=== PATIENT | female | born 1990 | race Caucasian/White ===

== ENCOUNTER 2021-05-09 20:44 | Emergency (ER) | payer OTHER, MEDICAID, SELFPAY ==
[2021-05-09 20:49] VITALS: BP 102/62; PULSE 67; RESP 18; TEMP 36.8; O2SAT 100
[2021-05-09] MEDS: SODIUM CHLORIDE 0.9% 1,000 ML 1000 ML IV (22:47)
[2021-05-09 23:17] VITALS: BP 99/54; PULSE 60; RESP 18; O2SAT 99
[2021-05-09 23:30] VITALS: PULSE 48; O2SAT 98
[2021-05-09 23:40] VITALS: PULSE 69; O2SAT 98
[2021-05-09 23:41] VITALS: BP 100/58
[2021-05-10] MEDS: SODIUM CHLORIDE 0.9% 1,000 ML 1000 ML IV (00:27)
--- NOTE | 2021-05-10 00:27 | ED.NAVMDI ---
HPI - Nausea/Vomiting/Diarrhea General Chief complaint: Nausea/Vomiting/Diarrhea Stated complaint: vomiting for 4 days Time Seen by Provider: 05/10/21 00:26 Source: patient Mode of arrival: Ambulatory History of Present Illness HPI Narrative: 30-year-old woman with history of Crohn's disease new to the area presents with 4 days of nausea and vomiting. She does not describe fevers, cough, chills or diarrhea. There is no blood in the vomitus. She does have Zofran and has not found that it is helpful. She is not currently . She is having trouble focusing as well as standing up because she gets so dizzy and orthostatic after 4 days of vomiting and having little oral intake. She reports epigastric abdominal pain secondary to the vomiting, no chest pain palpitations or headaches. Related Data Home Medications Medication Instructions Recorded Confirmed ondansetron 4 mg disintegrating 4 mg PO Q8H 05/09/21 05/09/21 tablet Previous Rx's Medication Instructions Recorded metoclopramide HCl 10 mg tablet 10 mg PO Q6H PRN #30 tab 05/10/21 Allergies Allergy/AdvReac Type Severity Reaction Status Date / Time iodine Allergy Severe Hives Verified 05/09/21 19:37 shellfish derived Allergy Severe anaphylaxis, Verified 05/09/21 19:37 swells up bee venom protein (honey bee) AdvReac Intermediate swelling Verified 05/09/21 19:37 at site Review of Systems Review of Systems Narrative: Remainder of complete review of systems is otherwise unremarkable except for that included in the HPI. Patient History Medical History (Updated 05/10/21 @ 01:43 by Madie Palomo MD) Crohn's disease Exam Narrative Exam Narrative: General: Healthy appearing, in mild distress. Able to give a complete and coherent history. Well-nourished well-developed HEENT: Moist mucous membranes, normal sclera with reactive pupils, Neck: , supple Respiratory: Lungs are clear to auscultation, no wheezing no rales no rhonchi. Full and symmetrical air movement Cardiac: Regular rate and rhythm no murmurs no bruits Abdomen: Soft, mild epigastric tenderness without rebound or guarding, good bowel tones, no flank pain Skin: Warm and dry, no rashes Neurologic: Grossly neurologically intact with no obvious asymmetries or abnormalities Extremities: No trauma, well perfused Psych: Cooperative, appropriate insight and affect Initial Vital Signs Initial Vital Signs: Vital Signs Temperature 98.3 F 05/09/21 20:49 Pulse Rate 67 05/09/21 20:49 Respiratory Rate 18 05/09/21 20:49 Blood Pressure 102/62 05/09/21 20:49 Pulse Oximetry 100 05/09/21 20:49 Course Orders Ordered: ED Orders 05/10/21 00:05 Complete Blood Count AUTO DIFF Stat Comprehensive Metabolic Panel Stat Lipase Stat Magnesium Stat Discontinued Medications Sodium Chloride (Normal Saline 0.9%) 1,000 mls @ 1,000 mls/hr IV BOLUS ONE Stop: 05/09/21 23:45 Last Infusion: 05/10/21 01:17 Dose: 0 mls/hr Documented by: Admin: 05/09/21 22:47 Dose: 1,000 mls/hr Documented by: ANGELA Sodium Chloride (Normal Saline 0.9%) 1,000 mls @ 1,000 mls/hr IV BOLUS ONE Stop: 05/10/21 01:25 Last Admin: 05/10/21 00:27 Dose: 1,000 mls/hr Documented by: ANGELA Metoclopramide HCl (Metoclopramide 10 Mg/2 Ml Inj) 10 mg IV NOW ONE Stop: 05/10/21 00:32 Last Admin: 05/10/21 00:41 Dose: 10 mg Documented by: ANGELA Vital Signs Vital signs: Vital Signs - 8 hr 05/09/21 20:49 05/09/21 23:17 05/09/21 23:30 Temperature 98.3 F Pulse Rate 67 60 48 L Respiratory Rate 18 18 Blood Pressure 102/62 99/54 L Pulse Oximetry 100 99 98 05/09/21 23:40 05/09/21 23:41 Temperature Pulse Rate 69 Respiratory Rate Blood Pressure 100/58 L Pulse Oximetry 98 MDM - Nausea/Vomiting/Diarrhea Lab Data Result diagrams: 05/09/21 22:35 05/09/21 22:35 Labs: Lab Results 05/09/21 05/09/21 Range/Units 22:35 22:35 WBC 8.0 (4.5-11.0) X10^3/uL RBC 4.48 (4.0-5.2) X10^6/uL Hgb 14.0 (12.0-16.0) g/dL Hct 41.1 (36-46) % MCV 91.8 (80-100) fL MCH 31.2 (26-34) PG MCHC 34.0 (30-36) % RDW 13.3 (11.6-14.8) % Plt Count 186 (150-400) X10^3/uL Neut % (Auto) 44.7 L (50-75) % Lymph % (Auto) 46.9 H (25-40) % [place] % (Auto) 5.3 (3-14) % Eos % (Auto) 2.6 (2-4) % Baso % (Auto) 0.5 (0-2) % Neut # (Auto) 3600 (6538-8681) /uL Lymph # (Auto) 3800 (4409-5157) /uL [place] # (Auto) 400 (0-900) /uL Eos # (Auto) 200 (0-450) /uL Baso # (Auto) 0 (0-100) /uL Sodium 141 (137-145) mmol/L Potassium 4.0 (3.4-5.1) mmol/L Chloride 104 (98-107) mmol/L Carbon Dioxide 29 (22-32) mmol/L BUN 12 (7-17) mg/dL Creatinine 0.70 (0.52-1.04) mg/dL Estimated GFR > 60.0 (>60) mL/min BUN/Creatinine Ratio 17.1 (6-22) Glucose 87 (70-100) mg/dL Calcium 9.7 (8.4-10.2) mg/dL Magnesium 2.0 (1.6-2.3) mg/dL Total Bilirubin 1.1 (0.2-1.3) mg/dL AST 29 (14-36) IU/L ALT 18 (<35) IU/L Alkaline Phosphatase 46 (38-126) U/L Total Protein 7.4 (6.3-8.2) g/dL Albumin 4.8 (3.5-5.0) g/dL Globulin 2.6 (1.7-4.1) g/dL Albumin/Globulin Ratio 1.8 (1.0-2.8) Lipase 62 (23-300) U/L Point of Care Testing Test Results Negative Urine Dip Bedside Urine Glucose Negative Bedside Urine Bilirubin - Negative Bedside Urine Ketone - Negative Urine Specific [place] 1.025 Bedside Urine Occult Blood - Negative Bedside Urine pH 6 Bedside Urine Protein - Negative Bedside Urine Urobilinogen - Negative Bedside Urine Nitrite - Negative Bedside Urine Leukocytes - Negative Esterase MDM Narrative Medical decision making narrative: 30-year-old woman with history of Crohn's disease with vomiting persisting now for 4 days. She does have ondansetron available to her at home but has not been as effective. In the emergency department labs are reassuring as is exam. No acute abdomen or obvious infection. She is given a total of 2 L of fluid. Initial the Zofran was not effective bed adding Reglan was. She will be given a prescription for Reglan to use at home as needed and discharged home with instructions to return if symptoms are not improving. Discharge Plan Departure Patient Disposition: Home Clinical Impression: Vomiting Qualifiers: Vomiting type: unspecified Vomiting Intractability: non-intractable Nausea presence: with nausea Qualified Code(s): R11.2 - Nausea with vomiting, unspecified Instructions: DI for Vomiting -- Adult Activity Restrictions/Additional Instructions: I am glad you are feeling better Your lab work was very reassuring. There is no evidence of infection, kidney problems or electrolyte abnormalities. The Reglan/metoclopramide that we used in the emergency department seem to be very effective for controlling her nausea. I have given you a prescription for this to use at home. You can use the Reglan and the ondansetron simultaneously or mix and match as best fits your needs. If you have worsening symptoms, please feel free to return to the ER Prescriptions: New metoclopramide HCl 10 mg tablet 10 mg PO Q6H PRN (Reason: nausea and vomiting) Qty: 30 RF: 0 No Action ondansetron 4 mg tablet,disintegrating 4 mg PO Q8H RF: 0
[2021-05-10] MEDS: METOCLOPRAMIDE 10 MG/2 ML INJ IV (00:41)
[2021-05-10 00:42] LABS: Add Manual Diff / Slide Review NO; Basophils Absolute Auto 0 /uL (0-100); Basophils Percent Auto 0.5 % (0-2); Eosinophils Absolute Auto 200 /uL (0-450); Eosinophils Percent Auto 2.6 % (2-4); Hematocrit 41.1 % (36-46); Lymphocytes Absolute Auto 3800 /uL (1100-4500); Lymphocytes Percent Auto 46.9 % (25-40); Mean Corpuscular Hemoglobin 31.2 PG (26-34); Mean Corpuscular Volume 91.8 fL (80-100); Monocytes Absolute Auto 400 /uL (0-900); Monocytes Percent Auto 5.3 % (3-14); Neutrophils Absolute Auto 3600 /uL (1500-7000); Neutrophils Percent Auto 44.7 % (50-75); Platelet Count 186 X10^3/uL (150-400); Red Blood Cell Count 4.48 X10^6/uL (4.0-5.2); Red Cell Distribution Width 13.3 % (11.6-14.8)
[2021-05-10 00:52] LABS: Alanine Aminotransferase 18 IU/L (<35); Albumin 4.8 g/dL (3.5-5.0); Albumin Globulin Ratio 1.8 (1.0-2.8); Alkaline Phosphatase 46 U/L (38-126); Aspartate Aminotransferase 29 IU/L (14-36); BUN Creatinine Ratio 17.1 (6-22); Bilirubin Total 1.1 mg/dL (0.2-1.3); Blood Urea Nitrogen 12 mg/dL (7-17); Calcium 9.7 mg/dL (8.4-10.2); Carbon Dioxide 29 mmol/L (22-32); Chloride 104 mmol/L (98-107); Estimated Glomerular Filt Rate > 60.0 mL/min (>60); Globulin 2.6 g/dL (1.7-4.1); Glucose 87 mg/dL (70-100); HEMOLYSIS 18 (0-50); Lipase 62 U/L (23-300); Sodium 141 mmol/L (137-145); Total Protein 7.4 g/dL (6.3-8.2)
[2021-05-10 01:55] VITALS: BP 108/65; PULSE 76; RESP 18; O2SAT 99
== END 2021-05-10 01:57 | disposition home or self-care (01) ==
PROVIDERS: Emergency Provider Emergency Medicine
DX: R11.2 Nausea with vomiting, unspecified (principal); R10.13 Epigastric pain
CPT/HCPCS: 80053; 81003; 81025; 83690; 83735; 85025; 87635; 96361; 96374; 99283; 99284; J2765

== ENCOUNTER → 2021-08-22 12:06 | Outpatient (CLI) | payer OTHER, MEDICAID, SELFPAY ==
[2021-08-22 14:05] LABS: COVID19 -Nasal RAPID Negative (Negative)
== END ==
PROVIDERS: Referring Provider Physician Assistant; Visit Provider Physician Assistant
DX: Z20.822 Contact with and (suspected) exposure to COVID-19 (principal); J02.9 Acute pharyngitis, unspecified
CPT/HCPCS: 87070; 87635; 87880

== ENCOUNTER 2021-10-20 17:11 | Emergency (ER) | payer OTHER, SELFPAY ==
--- NOTE | 2021-10-20 17:16 | DI.RAD.S_ITS ---
PROCEDURE: XR ANKLE LT MIN 3V INDICATIONS: fall, pain TECHNIQUE: 3 views of the ankle were acquired. COMPARISON: None. FINDINGS: Bones: No fractures or dislocations. Ankle mortise is normally aligned. No suspicious bony lesions. Soft tissues: No tibiotalar joint effusion. Achilles tendon appears normal. IMPRESSION: Unremarkable left ankle radiographs Approved by: Zhang Sanchez M.D. on 10/20/2021 at 17:09
--- NOTE | 2021-10-20 17:16 | DI.RAD.S_ITS ---
PROCEDURE: XR SACRUM COCCYX MIN 2V INDICATIONS: fall, pain TECHNIQUE: 3 views of the sacrum and coccyx acquired. COMPARISON: None. FINDINGS: Bones: No fractures or dislocations. No suspicious bony lesions. Soft tissues: Visualized bowel gas pattern is normal. No suspicious soft tissue densities. Midline intrauterine device noted. IMPRESSION: No evidence of fracture. Intrauterine device Approved by: Zhang Sanchez M.D. on 10/20/2021 at 17:08
[2021-10-20 17:21] VITALS: BP 114/62; PULSE 82; RESP 16; TEMP 37; O2SAT 97; BMI 25.0
[2021-10-20] MEDS: ACETAMINOPHEN 325 MG TABLET 975 MG PO (17:45)
[2021-10-20] MEDS: KETOROLAC 30 MG/ML VIAL IM (17:56)
--- NOTE | 2021-10-20 18:24 | ED_ITS ---
HPI - Fall General Chief Complaint: Fall Stated Complaint: fell, can't walk Time Seen by Provider: 10/20/21 18:03 History of Present Illness HPI Narrative: 31-year-old female Nonsmoker with noncontributory medical history presents with a friend and a chief complaint of a fall at work with injury to low back and left ankl nor loss of control of bowel or bladder She was in her normal state of health and denies any prodromal symptoms. She states that she probably stepped on some white substance on the floor then slipped and fell, landing on her tailbone and also rolling her ankle. She has severe pain when she attempts to ambulate and improvement with rest. She denies any head, neck or back trouble. She denies chest pain or shortness of breath. She has no lower extremity weakness, numbness, tingling Related Data Previous Rx's Medication Instructions Recorded hydrocortisone 1 %-pramoxine 1 % 1 applic [place] QID #10 g 08/06/21 rectal foam (Proctofoam HC) Allergies Allergy/AdvReac Type Severity Reaction Status Date / Time iodine Allergy Severe Hives Verified 08/05/21 14:47 shellfish derived Allergy Severe anaphylaxis, Verified 08/05/21 14:47 swells up bee venom protein (honey bee) AdvReac Intermediate swelling Verified 08/05/21 14:47 at site Review of Systems Review of Systems Narrative: GENERAL: Denies chills, fatigue, malaise, fever, sweats. HEENT: Denies sinus pain, ear pain, sore throat, difficulty swallowing, dizziness. RESPIRATORY: Denies dyspnea, cough, wheezing, hemoptysis, sputum. CARDIOVASCULAR: Denies chest pain, palpitations, orthopnea, edema, GASTROINTESTINAL: Denies nausea, vomiting, abdominal pain, diarrhea, constipation, melena. : Denies dysuria, frequency, incontinence, hematuria, urinary retention. MUSCULOSKELETAL: See HPI SKIN: Denies rash, skin lesions, or other NEUROLOGIC: Denies weakness, headache, numbness, change in speech, confusion, seizures, incoordination. PSYCHIATRIC: No concerning psychosocial issues. 12 point review of systems is negative except for those stated above Patient History Medical History Crohn's disease Social History Smoking Status: Never smoker Smoking Status: Never smoker Exam Narrative Exam Narrative: GENERAL: [31] year old patient appears stated age. Well-developed patient, in mild distress. HEAD: Atraumatic. Normocephalic. EYES: Pupils equal round and reactive. Extraocular motions intact. No scleral icterus. No injection or drainage. ENT: Nose without bleeding, purulent drainage. Throat without erythema, t onsillar hypertrophy or exudate. Airway patent. NECK: Trachea midline. Non tender CARDIOVASCULAR: Regular rate and rhythm without murmurs, gallops, or rubs. RESPIRATORY: Clear to auscultation. Breath sounds equal bilaterally. No wheezes, rales, or rhonchi. GASTROINTESTINAL: Abdomen soft, non-tender, nondistended. EXTREMITIES: No edema or joint tenderness. BACK: Nontender without deformity or crepitance. No flank tenderness. NEURO: AOx3. SKIN: No rash or erythema of visible areas Initial Vital Signs Initial Vital Signs: Vital Signs Temperature 98.6 F 10/20/21 17:21 Pulse Rate 82 10/20/21 17:21 Respiratory Rate 16 10/20/21 17:21 Blood Pressure 114/62 10/20/21 17:21 Pulse Oximetry 97 10/20/21 17:21 Course Orders Ordered: ED Orders 10/20/21 17:16 XR ankle LT min 3V Stat XR sacrum coccyx min 2V Stat Discontinued Medications Acetaminophen (Acetaminophen 325 Mg Tablet) 975 mg PO NOW ONE Stop: 10/20/21 17:43 Last Admin: 10/20/21 17:45 Dose: 975 mg Documented by: JOANIE Ketorolac Tromethamine (Ketorolac 30 Mg/Ml Vial) 30 mg IM NOW ONE Stop: 10/20/21 17:54 Last Admin: 10/20/21 17:56 Dose: 30 mg Documented by: JOANIE Vital Signs Vital signs: Vital Signs - 8 hr 10/20/21 18:41 Pulse Rate 84 Respiratory Rate 16 Blood Pressure 114/70 Pulse Oximetry 99 MDM - Fall Imaging Data Sacrum/Tailbone: Radiologist's Impression: [address] [address] XRay Report Signed Patient: Isabel Aguilera [facility]ly [facility] MR#: [id number] : 1990 Acct:[id number] Age/Sex: 31 / F Date of Service: 10/20/21 Loc: ED Accession Number: [id number] ?? Procedure: XR sacrum coccyx min 2V Ordering Provider: Oz Harden MD PROCEDURE:? XR SACRUM COCCYX MIN 2V ? INDICATIONS:? fall, pain ? TECHNIQUE:? 3 views of the sacrum and coccyx acquired.? ? COMPARISON:? None. ? FINDINGS:? ? Bones:? No fractures or dislocations.? No suspicious bony lesions.? ? Soft tissues:? Visualized bowel gas pattern is normal.? No suspicious soft tissue densities.? Midline intrauterine device noted. ? IMPRESSION:? ? No evidence of fracture. Intrauterine device ? ? ? Approved by: Zhang Sanchez M.D. on 10/20/2021 at 17:08? Left Ankle: Radiologist's Impression: [place] [address] XRay Report Signed Patient: Isabel Aguilera [facility] MR#: [id number] : 1990 Acct:[id number] Age/Sex: 31 / F Date of Service: 10/20/21 Loc: ED Accession Number: [id number] ?? Procedure: XR ankle LT min 3V Ordering Provider: Oz Harden MD PROCEDURE:? XR ANKLE LT MIN 3V ? INDICATIONS:? fall, pain ? TECHNIQUE:? 3 views of the ankle were acquired.? ? COMPARISON:? None. ? FINDINGS:? ? Bones:? No fractures or dislocations.? Ankle mortise is normally aligned.? No s uspicious bony lesions.? ? Soft tissues:? No tibiotalar joint effusion.? Achilles tendon appears normal.? ? ? IMPRESSION:? Unremarkable left ankle radiographs ? Approved by: Zhang Sanchez M.D. on 10/20/2021 at 17:09? Discharge Plan Departure Patient Disposition: Home Clinical Impression: Mild sprain of left ankle, Coccyx contusion Instructions: How to Prevent Falls Activity Restrictions/Additional Instructions: *You have been diagnosed with [fall with tailbone bruise and left ankle sprain. History and physical exam are reassuring and x-ray showed no evidence of fracture or dislocation *What to do: *Please continue to take your regular medications as directed. [ ] New medication prescriptions sent to your pharmacy: [ ] [ ] New medication written as a paper prescription [x ] No new medications given *Please follow up with your primary care provider in 2-3 days, call for an appointment. Let them know you were seen in the Emergency Department and that we ask that you be seen in follow up. We will electronically transmit a record of today's note if your PCP is in our system *If you do not have a primary care provider please contact the [facility] Resource line at [phone]. They will ask some questions about your medical history and help get you set up with a doctor in the community. *Return to Emergency Department if you should have any new, worsening or concerning symptoms, such as [fever greater than 101 F, shaking chills, worsening pain, persistent vomiting or other bothersome symptoms] Prescriptions: No Action Proctofoam HC 1-1 % foam 1 applic [place] QID Qty: 10 0RF Referrals: Miscellaneous,Doctor, MD [Primary Care Provider] - Stand Alone Forms: Work Release Note
[2021-10-20 18:41] VITALS: BP 114/70; PULSE 84; RESP 16; O2SAT 99
== END 2021-10-20 18:41 | disposition home or self-care (01) ==
PROVIDERS: Emergency Provider Emergency Medicine
DX: S93.402A Sprain of unspecified ligament of left ankle, initial encounter (principal); S30.0XXA Contusion of lower back and pelvis, initial encounter; W01.0XXA Fall on same level from slipping, tripping and stumbling without subsequent striking against object, initial encounter; Y99.0 Civilian activity done for income or pay
CPT/HCPCS: 72220; 73610; 96372; 99283; 99284; J1885

== ENCOUNTER 2022-04-22 01:56 | Emergency (ER) | payer OTHER, MEDICAID, SELFPAY ==
--- NOTE | 2022-04-22 02:03 | ED_ITS ---
HPI - Abdominal Pain General Chief Complaint: Abdominal Pain Stated Complaint: abd. pain Time Seen by Provider: 04/22/22 02:03 History of Present Illness HPI narrative: 31-year-old female nonsmoker with noncontributory chronic medical history presents with a friend and a chief complaint of generalized, colicky type abdominal pain worsening over the course of the day. She denies any obvious provocation or palliation and states that the pain migrates across her abdomen with, a mind of its own. She is been nauseated but denies any vomiting. She admits to having very hard stools and difficulty moving her bowels over the past day or 2. In the big picture she is had no runny nose, sore throat or cough and has no fever or chills. She denies chest pain or shortness of breath and has had no urinary complaints nor vaginal bleeding. She states that she is working 2 jobs and has been significantly busy and admits that she is not been eating very healthy nor drinking much water. Related Data Previous Rx's Medication Instructions Recorded hydrocortisone 1 %-pramoxine 1 % 1 applic [place] QID #10 grams 08/06/21 rectal foam (Proctofoam HC) Allergies Allergy/AdvReac Type Severity Reaction Status Date / Time iodine Allergy Severe Hives Verified 08/05/21 14:47 shellfish derived Allergy Severe anaphylaxis, Verified 08/05/21 14:47 swells up bee venom protein (honey bee) AdvReac Intermediate swelling Verified 08/05/21 14:47 at site Review of Systems Review of Systems Narrative: GENERAL: Denies chills, fatigue, malaise, fever, sweats. HEENT: Denies sinus pain, ear pain, sore throat, difficulty swallowing, dizziness. RESPIRATORY: Denies dyspnea, cough, wheezing, hemoptysis, sputum. CARDIOVASCULAR: Denies chest pain, palpitations, orthopnea, edema, GASTROINTESTINAL: See HPI : Denies dysuria, frequency, incontinence, hematuria, urinary retention. MUSCULOSKELETAL: denies weakness, joint pain, or bony pain SKIN: Denies rash, skin lesions, or other NEUROLOGIC: Denies weakness, headache, numbness, change in speech, confusion, seizures, incoordination. PSYCHIATRIC: No concerning psychosocial issues. 12 point review of systems is negative except for those stated above Patient History Medical History Crohn's disease Social History Smoking Status: Never smoker Smoking Status: Never smoker Exam Narrative Exam Narrative: GENERAL: [31] year old patient appears stated age. Well-developed patient, in mild distress. HEAD: Atraumatic. Normocephalic. EYES: Pupils equal round and reactive. Extraocular motions intact. No scleral icterus. No injection or drainage. ENT: Nose without bleeding, purulent drainage. Throat without erythema, tonsillar hypertrophy or exudate. Airway patent. NECK: Trachea midline. Non tender CARDIOVASCULAR: Regular rate and rhythm without murmurs, gallops, or rubs. RESPIRATORY: Clear to auscultation. Breath sounds equal bilaterally. No wheezes, rales, or rhonchi. GASTROINTESTINAL: Abdomen soft, non-tender, nondistended. Bowel sounds present in all 4 quadrants EXTREMITIES: No edema or joint tenderness. BACK: Nontender without deformity or crepitance. No flank tenderness. NEURO: AOx3. SKIN: No rash or erythema of visible areas Initial Vital Signs Initial Vital Signs: Vital Signs Temperature 98.1 F 04/22/22 02:13 Pulse Rate 82 04/22/22 02:13 Respiratory Rate 22 04/22/22 02:13 Blood Pressure 110/54 L 04/22/22 02:13 Pulse Oximetry 98 04/22/22 02:13 Oxygen Delivery Method 04/22/22 02:13 Course Orders Ordered: ED Orders 04/22/22 02:25 COVID19 -Nasal RAPID/Pre-Proc Stat 04/22/22 02:28 Complete Blood Count AUTO DIFF Stat Comprehensive Metabolic Panel Stat 04/22/22 02:59 XR acute abdomen series Stat Discontinued Medications Diphenhydramine HCl (Diphenhydramine 50 Mg/Ml Vial) 25 mg IV NOW ONE Stop: 04/22/22 02:14 Last Admin: 04/22/22 02:23 Dose: 25 mg Documented By: EB Famotidine (Famotidine 20 Mg/2 Ml Vial) 20 mg IV NOW KANA Last Admin: 04/22/22 02:23 Dose: 20 mg Documented By: EB Sodium Chloride (Normal Saline 0.9%) 1,000 mls @ 1,000 mls/hr IV BOLUS ONE Stop: 04/22/22 03:12 Last Infusion: 04/22/22 04:15 Dose: 0 mls/hr Documented By: Admin: 04/22/22 02:23 Dose: 1,000 mls/hr Documented By: EB Methylprednisolone (Methylprednisolone 125 Mg/2 Ml Vial) 125 mg IV NOW ONE Stop: 04/22/22 02:14 Last Admin: 04/22/22 02:23 Dose: 125 mg Documented By: EB Ondansetron HCl (Ondansetron 4 Mg/2 Ml Inj) 4 mg IV NOW ONE Stop: 04/22/22 02:14 Last Admin: 04/22/22 02:23 Dose: 4 mg Documented By: EB Vital Signs Vital signs: Vital Signs - 8 hr 04/22/22 02:13 04/22/22 04:14 Temperature 98.1 F Pulse Rate 82 90 Respiratory Rate 22 18 Blood Pressure 110/54 L Pulse Oximetry 98 99 Oxygen Delivery Method Room Air Room Air MDM - Abdominal Pain Lab Data Result diagrams: 04/22/22 02:28 04/22/22 02:28 Labs: Lab Results 04/22/22 04/22/22 04/22/22 Range/Units 02:25 02:28 02:28 WBC 13.0 H (4.5-11.0) X10^3/uL RBC 4.21 (4.0-5.2) X10^6/uL Hgb 13.2 (12.0-16.0) g/dL Hct 37.9 (36-46) % MCV 89.9 (80-100) fL MCH 31.2 (26-34) PG MCHC 34.7 (30-36) % RDW 13.1 (11.6-14.8) % Plt Count 159 (150-400) X10^3/uL Neut % (Auto) 70.1 (50-75) % Lymph % (Auto) 21.8 L (25-40) % [place] % (Auto) 5.6 (3-14) % Eos % (Auto) 1.9 L (2-4) % Baso % (Auto) 0.6 (0-2) % Neut # (Auto) 9100 H (7976-8152) /uL Lymph # (Auto) 2800 (6883-1084) /uL [place] # (Auto) 700 (0-900) /uL Eos # (Auto) 200 (0-450) /uL Baso # (Auto) 100 (0-100) /uL Sodium 138 (137-145) mmol/L Potassium 3.8 (3.4-5.1) mmol/L Chloride 110 H (98-107) mmol/L Carbon Dioxide 21 L (22-32) mmol/L BUN 11 (7-17) mg/dL Creatinine 0.51 L (0.52-1.04) mg/dL Estimated GFR > 60 (>60) mL/min BUN/Creatinine Ratio 21.6 (6-22) Glucose 95 (70-100) mg/dL Calcium 9.0 (8.4-10.2) mg/dL Total Bilirubin 1.4 H (0.2-1.3) mg/dL AST 19 (14-36) IU/L ALT 17 (<35) IU/L Alkaline Phosphatase 51 (38-126) U/L Total Protein 7.0 (6.3-8.2) g/dL Albumin 4.5 (3.5-5.0) g/dL Globulin 2.5 (1.7-4.1) g/dL Albumin/Globulin Ratio 1.8 (1.0-2.8) SARS-CoV-2 (PCR) Negative (Negative) Imaging Data Abdominal x-ray: Radiologist's Impression: Nonspecific but nonobstructive bowel gas pattern, moderate fecal burden Discharge Plan Departure Patient Disposition: Home Clinical Impression: Constipation Instructions: DI for Constipation Activity Restrictions/Additional Instructions: *You have been diagnosed with [ abdominal pain due to constipation ] *What to do: *Take over the counter medications as directed: 1. Metamucil - is a bulk forming laxative and adds fiber 2. Colace - softens your stool 3. Dulcolax suppository - stimulates your bowels *Follow up with your primary care provider in 2-3 days, call for appointment *Return to ER if you should have any new, worsening or concerning symptoms *Drink plenty of water and eat foods high in fiber *Stay as active as you can as this helps move your bowels as well Prescriptions: No Action Proctofoam HC 1-1 % foam 1 applic [place] QID Qty: 10 0RF Stand Alone Forms: Work Release Note Visit Report Forms: Patient Portal/API
[2022-04-22 02:13] VITALS: BP 110/54; PULSE 82; RESP 22; TEMP 36.7; O2SAT 98; BMI 21.9
[2022-04-22] MEDS: SODIUM CHLORIDE 0.9% 1,000 ML 1000 ML IV (02:23)
[2022-04-22] MEDS: diphenhydrAMINE 50 MG/ML VIAL 25 MG IV (02:23)
[2022-04-22] MEDS: methylPREDNISolone 125 MG/2 ML VIAL IV (02:23)
[2022-04-22] MEDS: FAMOTIDINE 20 MG/2 ML VIAL IV (02:23)
[2022-04-22] MEDS: ONDANSETRON 4 MG/2 ML INJ IV (02:23)
[2022-04-22 02:39] LABS: Add Manual Diff / Slide Review NO; Basophils Absolute Auto 100 /uL (0-100); Basophils Percent Auto 0.6 % (0-2); Eosinophils Absolute Auto 200 /uL (0-450); Eosinophils Percent Auto 1.9 % (2-4); Hematocrit 37.9 % (36-46); Hemoglobin 13.2 g/dL (12.0-16.0); Lymphocytes Absolute Auto 2800 /uL (1100-4500); Lymphocytes Percent Auto 21.8 % (25-40); Mean Corpuscular HGB Conc 34.7 % (30-36); Mean Corpuscular Hemoglobin 31.2 PG (26-34); Mean Corpuscular Volume 89.9 fL (80-100); Monocytes Absolute Auto 700 /uL (0-900); Monocytes Percent Auto 5.6 % (3-14); Neutrophils Absolute Auto 9100 /uL (1500-7000); Neutrophils Percent Auto 70.1 % (50-75); Platelet Count 159 X10^3/uL (150-400); Red Blood Cell Count 4.21 X10^6/uL (4.0-5.2); Red Cell Distribution Width 13.1 % (11.6-14.8)
[2022-04-22 02:44] LABS: Alanine Aminotransferase 17 IU/L (<35); Albumin 4.5 g/dL (3.5-5.0); Albumin Globulin Ratio 1.8 (1.0-2.8); Alkaline Phosphatase 51 U/L (38-126); Aspartate Aminotransferase 19 IU/L (14-36); BUN Creatinine Ratio 21.6 (6-22); Bilirubin Total 1.4 mg/dL (0.2-1.3); Blood Urea Nitrogen 11 mg/dL (7-17); Carbon Dioxide 21 mmol/L (22-32); Chloride 110 mmol/L (98-107); Estimated Glomerular Filt Rate > 60 mL/min (>60); Globulin 2.5 g/dL (1.7-4.1); Glucose 95 mg/dL (70-100); HEMOLYSIS < 15 (0-50); Potassium 3.8 mmol/L (3.4-5.1); Sodium 138 mmol/L (137-145)
[2022-04-22 02:52] LABS: COVID19 -Nasal RAPID Negative (Negative)
--- NOTE | 2022-04-22 02:59 | DI.RAD.S_ITS ---
PROCEDURE: XR ACUTE ABDOMEN SERIES INDICATIONS: Abdominal pain, constipation, hard stool, nausea TECHNIQUE: One view chest and two views of the abdomen were acquired. COMPARISON: None. FINDINGS: Surgical changes and devices: The IUD is seen at its expected location. Chest: An incomplete inspiratory result is noted, causing a crowded appearance to the lung markings. No focal infiltrates are seen. No pneumothorax or significant pleural effusions are seen. Heart size is normal. No pleural effusions. No pneumoperitoneum. Abdomen: Bowel gas pattern is normal. There is a moderate burden of stool seen. No suspicious calcifications. Visualized solid organ contours appear normal. Bones: No suspicious bony lesions. Mild levoconvex scoliotic curvature is noted. IMPRESSION: A nonobstructive bowel gas pattern is seen. If clinically appropriate, please consider a repeat plain film study or a dedicated CT of the abdomen and pelvis, if the patient's symptoms persist or worsen. There is a moderate amount of stool seen within the colon. Please correlate with an underlying history of constipation. Low lung volumes, without focal infiltrates. Note: No significant discrepancy from the preliminary report. Dictated by: Diego Garcia M.D. on 04/22/2022 at 7:38 Approved by: Diego Garcia M.D. on 04/22/2022 at 7:39
[2022-04-22 04:14] VITALS: PULSE 90; RESP 18; O2SAT 99
== END 2022-04-22 04:14 | disposition home or self-care (01) ==
PROVIDERS: Emergency Provider Emergency Medicine
DX: K59.00 Constipation, unspecified (principal); Z20.822 Contact with and (suspected) exposure to COVID-19
CPT/HCPCS: 36415; 74022; 80053; 85025; 87635; 96361; 96374; 96375; 99284; C9803; J1200; J2405; J2930

== ENCOUNTER 2022-05-03 17:56 | Emergency (ER) | payer OTHER, MEDICAID, SELFPAY ==
[2022-05-03] VITALS (9 sets, daily range): BP systolic 110–134; BP diastolic 58–85; PULSE 80–102; RESP 16–27; TEMP 37; O2SAT 99–100; BMI 21.9
--- NOTE | 2022-05-03 18:15 | ED_ITS ---
HPI - Allergic Reaction General Chief complaint: Allergic Reaction Stated complaint: Thinks allergic reaction, Coughing Time Seen by Provider: 05/03/22 18:14 Source: patient Mode of arrival: Ambulatory History of Present Illness HPI narrative: 31-year-old female nonsmoker with noncontributory medical history presents at the request of the walk-in clinic for evaluation of possible allergic reaction. She had been in her normal state of health and then shortly after eating some peanut butter at work she developed a rather sudden onset swelling in her throat, alteration in her voice and trouble swallowing. She denies any history of the same. She denies any wheezing, trouble breathing, rash, hives or GI symptoms such as nausea, vomiting or diarrhea. She had taken to diphenhydramine tablets orally prior to her arrival in continues to worsen. She is otherwise well and free of complaint and denies any new medications, diet or other possible exposures Related Data Previous Rx's Medication Instructions Recorded hydrocortisone 1 %-pramoxine 1 % 1 applic [place] QID #10 grams 08/06/21 rectal foam (Proctofoam HC) epinephrine 0.3 mg/0.3 mL 0.3 mg (0.3 mL) IM Q5-15M PRN 05/03/22 injection, auto-injector (EpiPen anaphylaxis #2 ea 2-Km) prednisone 20 mg tablet 20 mg PO DAILY #5 tabs 05/03/22 Allergies Allergy/AdvReac Type Severity Reaction Status Date / Time iodine Allergy Severe Hives Verified 05/03/22 18:05 shellfish derived Allergy Severe anaphylaxis, Verified 05/03/22 18:05 swells up bee venom protein (honey bee) AdvReac Intermediate swelling Verified 05/03/22 18:05 at site Review of Systems Review of Systems Narrative: GENERAL: Denies chills, fatigue, malaise, fever, sweats. HEENT: See HPI RESPIRATORY: Denies dyspnea, cough, wheezing, hemoptysis, sputum. CARDIOVASCULAR: Denies chest pain, palpitations, orthopnea, edema, GASTROINTESTINAL: Denies nausea, vomiting, abdominal pain, diarrhea, constipation, melena. : Denies dysuria, frequency, incontinence, hematuria, urinary retention. MUSCULOSKELETAL: denies weakness, joint pain, or bony pain SKIN: Denies rash, skin lesions, or other NEUROLOGIC: Denies weakness, headache, numbness, change in speech, confusion, seizures, incoordination. PSYCHIATRIC: No concerning psychosocial issues. 12 point review of systems is negative except for those stated above Patient History Medical History Crohn's disease Social History Smoking Status: Never smoker Smoking Status: Never smoker alcohol intake frequency: holidays/special occasions only Substance Use Type: marijuana Exam Narrative Exam Narrative: GENERAL: [31] year old patient appears stated age. Well-developed patient, in mild distress. Anxious HEAD: Atraumatic. Normocephalic. EYES: Pupils equal round and reactive. Extraocular motions intact. No scleral icterus. No injection or drainage. ENT: Nose without bleeding, purulent drainage. Throat without erythema, tonsillar hypertrophy or exudate. Airway patent. No obvious abnormality, though voices slightly altered NECK: Trachea midline. Non tender CARDIOVASCULAR: Regular rate and rhythm without murmurs, gallops, or rubs. RESPIRATORY: Clear to auscultation. Breath sounds equal bilaterally. No wheezes, rales, or rhonchi. GASTROINTESTINAL: Abdomen soft, non-tender, nondistended. EXTREMITIES: No edema or joint tenderness. BACK: Nontender without deformity or crepitance. No flank tenderness. NEURO: AOx3. SKIN: No rash or erythema of visible areas Initial Vital Signs Initial Vital Signs: Vital Signs Temperature 98.6 F 05/03/22 18:02 Pulse Rate 80 05/03/22 18:02 Respiratory Rate 18 05/03/22 18:02 Blood Pressure 122/85 05/03/22 18:02 Pulse Oximetry 99 05/03/22 18:02 Oxygen Delivery Method 05/03/22 18:02 Course Orders Ordered: Discontinued Medications Diphenhydramine HCl (Diphenhydramine 50 Mg/Ml Vial) 50 mg IV NOW ONE Stop: 05/03/22 18:19 Last Admin: 05/03/22 18:25 Dose: 50 mg Documented By: RADHA Epinephrine HCl (Epinephrine 1 Mg/Ml) 0.5 mg IM NOW ONE Stop: 05/03/22 18:19 Last Admin: 05/03/22 18:25 Dose: 0.5 mg Documented By: RADHA Famotidine (Famotidine 20 Mg/2 Ml Vial) 20 mg IV NOW KANA Last Admin: 05/03/22 18:29 Dose: 20 mg Documented By: EB Methylprednisolone (Methylprednisolone 125 Mg/2 Ml Vial) 125 mg IV NOW ONE Stop: 05/03/22 18:19 Last Admin: 05/03/22 18:25 Dose: 125 mg Documented By: CTS Reevaluation(s) Reevaluation #1: Patient has significant improvement in symptoms and if anything is symptom-free at this point in time. Vital Signs Vital signs: Vital Signs - 8 hr 05/03/22 18:02 Temperature 98.6 F Pulse Rate 80 Respiratory Rate 18 Blood Pressure 122/85 Pulse Oximetry 99 Oxygen Delivery Method Room Air Discharge Plan Departure Patient Disposition: Home Clinical Impression: Allergic reaction Instructions: DI for General Allergic Reactions Activity Restrictions/Additional Instructions: *You have been diagnosed with [allergic reaction] *What to do: *Please continue to take your regular medications as directed. [x ] New medication prescriptions sent to your pharmacy: [[facility]] [ ] New medication written as a paper prescription [ ] No new medications given *Please consider the routine use of over the counter antihistamines over the next few days 1. H1 blockers: Benadryl (Diphenhydramine), Zyrtec (Cetirizine), Magaly (Fexofenadine) or Claritin (Loratadine) along with, 2. H2 blockers: Famotidine or Cimetidine *If you can please avoid what triggered your reaction today *Please follow up with your primary care provider in 2-3 days, call for an appointment. Let them know you were seen in the Emergency Department and that we ask that you be seen in follow up. We will electronically transmit a record of today's note if your PCP is in our system *If you do not have a primary care provider please contact the [facility] Resource line at [phone]. They will ask some questions about your medical history and help get you set up with a doctor in the community. *Return to Emergency Department if you should have any new, worsening or concerning symptoms, such as swelling of tongue, throat, trouble breathing, or other concerning symptoms Prescriptions: New prednisone 20 mg tablet 20 mg PO DAILY Qty: 5 0RF Rx Instructions: administer with food or milk epinephrine [EpiPen 2-Km] 0.3 mg/0.3 mL auto-injector 0.3 mg IM Q5-15M PRN (Reason: anaphylaxis) Qty: 2 0RF Rx Instructions: do not exceed 3 doses per episode No Action Proctofoam HC 1-1 % foam 1 applic AK QID Qty: 10 0RF Referrals: Miscellaneous,Doctor, MD [Primary Care Provider] - Visit Report Forms: Patient Portal/API
[2022-05-03] MEDS: diphenhydrAMINE 50 MG/ML VIAL IV (18:25)
[2022-05-03] MEDS: EPINEPHrine 1 MG/ML 0.5 MG IM (18:25)
[2022-05-03] MEDS: methylPREDNISolone 125 MG/2 ML VIAL IV (18:25)
[2022-05-03] MEDS: FAMOTIDINE 20 MG/2 ML VIAL IV (18:29)
== END 2022-05-03 20:15 | disposition home or self-care (01) ==
PROVIDERS: Emergency Provider Emergency Medicine
DX: T78.40XA Allergy, unspecified, initial encounter (principal)
CPT/HCPCS: 36415; 96372; 96374; 96375; 99284; J0171; J1200; J2930

== ENCOUNTER 2022-09-22 18:42 | Emergency (ER) | payer OTHER, MEDICAID, SELFPAY ==
[2022-09-22 19:06] VITALS: BP 105/68; PULSE 66; RESP 18; TEMP 36.4; O2SAT 100; BMI 23.5
--- NOTE | 2022-09-22 21:31 | ED.BACK ---
HPI - Back Pain/Injury General Chief Complaint: Back Pain/Injury Stated Complaint: Back pain- lower middle back Time Seen by Provider: 09/22/22 21:04 Source: patient Mode of arrival: Wheelchair Limitations: no limitations History of Present Illness HPI Narrative: 32-year-old female who is here for evaluation of bilateral with middle and right side being greater than left side back discomfort. No radiation into her legs. No specific injury. She is a dog agreement. 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 It is worsened as the day went on. 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 Has not tried anything for the symptoms. No urinary symptoms. No change in bowel habits. No fevers. Related Data Previous Rx's Medication Instructions Recorded hydrocortisone 1 %-pramoxine 1 % 1 applic [place] QID #10 grams 08/06/21 rectal foam (Proctofoam HC) epinephrine 0.3 mg/0.3 mL 0.3 mg (0.3 mL) IM Q5-15M PRN 05/03/22 injection, auto-injector (EpiPen anaphylaxis #2 ea 2-Km) prednisone 20 mg tablet 20 mg PO DAILY #5 tabs 05/03/22 cyclobenzaprine 10 mg tablet 10 mg PO TID PRN muscle spasm #20 09/22/22 tabs Allergies Allergy/AdvReac Type Severity Reaction Status Date / Time iodine Allergy Severe Hives Verified 09/22/22 19:05 shellfish derived Allergy Severe anaphylaxis, Verified 09/22/22 19:05 swells up bee venom protein (honey bee) AdvReac Intermediate swelling Verified 09/22/22 19:05 at site Review of Systems Constitutional Constitutional: Reports system reviewed and no additional complaints, except as documented Musculoskeletal Musculoskeletal: Reports system reviewed and no additional complaints, except as documented Integumentary/Breasts Skin/Breast: Reports system reviewed and no additional complaints, except as documented Neurologic Neurologic: Reports system reviewed and no additional complaints, except as documented Hematologic/Lymphatic On Anticoagulants: No Patient History Medical History Crohn's disease Social History Smoking Status: Never smoker Smoking Status: Never smoker alcohol intake frequency: holidays/special occasions only Substance Use Type: marijuana Exam Initial Vital Signs Initial Vital Signs: Vital Signs Temperature 97.6 F 09/22/22 19:06 Pulse Rate 66 09/22/22 19:06 Respiratory Rate 18 09/22/22 19:06 Blood Pressure 105/68 09/22/22 19:06 Pulse Oximetry 100 09/22/22 19:06 Oxygen Delivery Method 09/22/22 19:06 Const General: cooperative and No ill appearing HENMT Head: normal to inspection and normocephalic Resp Effort & Inspection: normal respiratory effort Cardio Rate: regular rate Back/Spine/Pelvis Thoracic/Lumbar Spine: paraspinal tenderness, No thoracic spinal tenderness and lumbar spinal tenderness Skin General: no rashes or lesions noted Neuro General: patient alert, patient awake and moves all extremities Extrem General: capillary refill normal Course Orders Ordered: Discontinued Medications Cyclobenzaprine HCl (Cyclobenzaprine 10 Mg Tablet) 10 mg PO NOW ONE Stop: 09/22/22 21:35 Last Admin: 09/22/22 21:43 Dose: 10 mg Documented By: DU Cyclobenzaprine HCl (Cyclobenzaprine 10 Mg Prepack) [facility] Stop: 09/22/22 21:36 Last Admin: 09/22/22 21:44 Dose: 1 bottle Documented By: DU Ketorolac Tromethamine (Ketorolac 30 Mg/Ml Vial) 30 mg IM NOW ONE Stop: 09/22/22 21:35 Last Admin: 09/22/22 21:44 Dose: 30 mg Documented By: DU Tramadol HCl (Tramadol 50 Mg Prepack) 1 bottle [facility]ISC SEEINSTR ONE Stop: 09/22/22 21:36 Last Admin: 09/22/22 21:44 Dose: 1 bottle Documented By: DU Vital Signs Vital signs: Vital Signs - 8 hr 09/22/22 21:42 Pulse Rate 68 Respiratory Rate 14 Blood Pressure 104/64 Pulse Oximetry 98 Oxygen Delivery Method Room Air MDM - Back Pain/Injury Differential Diagnosis Differential diagnosis: Likely lumbar radiculopathy, sciatica, strain of lumbar region, thoracic back pain, AAA and discitis Lab Data Attestation: I reviewed the patient's lab results. Labs: Urine Dip Bedside Urine Glucose Negative Bedside Urine Bilirubin - Negative Bedside Urine Ketone - Negative Urine Specific [place] 1.015 Bedside Urine Occult Blood - Negative Bedside Urine pH 6.0 Bedside Urine Protein - Negative Bedside Urine Urobilinogen - Negative Bedside Urine Nitrite - Negative Bedside Urine Leukocytes - Negative Esterase MDM Narrative Medical decision making narrative: She does have tenderness to palpation in her lumbar region. There was no specific trauma. Low suspicion for fracture. Will hold on any radiologic studies for now. High suspicion this is musculoskeletal. Most likely muscular. No indication for antibiotics. Will send home with symptom treatment. She was given expected course of treatment over the next couple days. She was given return precautions and follow-up instructions. She expressed understanding Discharge Plan Departure Patient Disposition: Home Clinical Impression: Strain of lumbar region Instructions: DI for Low Back Pain Activity Restrictions/Additional Instructions: Recommend conservative measures such as light stretching and massage and staying active. You can also try heat/ice. Use the muscle relaxers as needed. I suspect that your symptoms will improve over the next couple days. Contact your primary provider for follow-up. [facility] Prescriptions: New cyclobenzaprine 10 mg tablet 10 mg PO TID PRN (Reason: muscle spasm) Qty: 20 0RF No Action Proctofoam HC 1-1 % foam 1 applic DC QID Qty: 10 0RF prednisone 20 mg tablet 20 mg PO DAILY Qty: 5 0RF Rx Instructions: administer with food or milk epinephrine [EpiPen 2-Km] 0.3 mg/0.3 mL auto-injector 0.3 mg IM Q5-15M PRN (Reason: anaphylaxis) Qty: 2 0RF Rx Instructions: do not exceed 3 doses per episode Referrals: Miscellaneous,Doctor, [Primary Care Provider] - Stand Alone Forms: Patient Portal/API, Work Release Note
[2022-09-22 21:42] VITALS: BP 104/64; PULSE 68; RESP 14; O2SAT 98
[2022-09-22] MEDS: CYCLOBENZAPRINE 10 MG TABLET PO (21:43)
[2022-09-22] MEDS: TRAMADOL 50 MG PREPACK 1 BOTTLE MISC (21:44)
[2022-09-22] MEDS: KETOROLAC 30 MG/ML VIAL IM (21:44)
[2022-09-22] MEDS: CYCLOBENZAPRINE 10 MG PREPACK 1 BOTTLE MISC (21:44)
== END 2022-09-22 22:05 | disposition home or self-care (01) ==
PROVIDERS: Emergency Provider Emergency Medicine
DX: S39.012A Strain of muscle, fascia and tendon of lower back, initial encounter (principal); X58.XXXA Exposure to other specified factors, initial encounter
CPT/HCPCS: 81003; 96372; 99283; J1885